=== PATIENT | female | born 1995 | race African-American/Black ===

== ENCOUNTER 2019-08-28 23:19 | Observation (INO) ==
[2019-08-29] MEDS ORDERED: SODIUM CHLORIDE 0.9% 500 ML IV STA (01:08)
[2019-08-29 01:51] LABS: INR 1.1
[2019-08-29] MEDS ORDERED: ONDANSETRON 4 MG/2 ML VIAL ONE ×2 (01:51→10:56)
[2019-08-29] MEDS ORDERED: HYDROmorphone 2 MG/1 ML VIAL ONE (01:52)
[2019-08-29] MEDS ORDERED: HYDROmorphone 2 MG/1 ML VIAL IV ONE (01:56)
[2019-08-29] MEDS ORDERED: ONDANSETRON 4 MG/2 ML VIAL IV STA (01:56)
[2019-08-29 01:57] LABS: Basophils % 0.3 % (0.0-0.8); Eosinophils # 0.1 10*3/uL (0.0-0.87); Eosinophils % 0.8 % (0.00-10.9); Hemoglobin 11.2 GM/DL (12.0-16.0); Immature Granulocytes % 0.3 %; Immature Granulocytes Absolute 0.04 #; Lymphocytes # 2.3 10*3/uL (1.4-4.0); Lymphocytes % 19.4 % (21.3-54.2); Mean Corpuscular HGB Conc 32.9 GM/DL (32-36); Mean Corpuscular Volume 89.2 FL (87-102); Monocytes % 4.5 % (1.7-12.7); Neutrophils % 74.7 % (38.7-73.9); Platelet Count 301 T/CUMM (130-400); Red Blood Count 3.81 MC/CUMM (3.8-5.5); Red Cell Distribution Width 12.3 % (9.3-17.3); White Blood Count 11.9 T/CUMM (4-12)
[2019-08-29 01:58] LABS: Apearance,Urine CLOUDY (Clear); Bilirubin,Urine Negative (Negative); Blood, Urine Large mg/dL (Negative); Glucose,Urine (UA) Negative (Negative); Ketones,Urine 20 mg/dL (Negative); Mucus,Urine Occasional /LPF (Occasional); Nitrite,Urine Negative (Negative); Protein,Urine 30 MG/DL; Squamous Epithelial Cell,Urine Occasional /HPF (0-10); Urine Color Amber (Yellow); Urine Specific Gravity 1.033 (1.001-1.035); WBC,Urine 1 /HPF (0-6)
[2019-08-29 02:19] LABS: Albumin 3.9 G/DL (3.4-5.0); Bilirubin,Total 1.4 MG/DL (0.2-1.0); Osmolality,Calculated 271.8 MOS/KG (273-304); Total Protein 7.8 G/DL (6.4-8.3)
[2019-08-29] MEDS ORDERED: ONDANSETRON 4 MG/2 ML VIAL IV PRN (03:25)
[2019-08-29] MEDS ORDERED: MORPHINE 4 MG/1 ML VIAL IV PRN (03:25)
[2019-08-29] MEDS ORDERED: ACETAMINOPHEN 325 MG TABLET PO PRN (03:25)
[2019-08-29] MEDS ORDERED: IBUPROFEN 800 MG TABLET PO PRN (03:25)
[2019-08-29] MEDS ORDERED: MAGNESIUM HYDROXIDE SUSP 30 ML UDCUP PO PRN (03:25)
[2019-08-29] MEDS ORDERED: SODIUM CHLORIDE 0.9% 1,000 ML IV SCH (03:25)
[2019-08-29] MEDS ORDERED: BISACODYL 10 MG SUPP RECTAL PRN (03:25)
[2019-08-29] MEDS ORDERED: LACTATED RINGERS 1,000 ML IV SCH (03:30)
[2019-08-29] MEDS ORDERED: ONDANSETRON 4 MG/2 ML VIAL IV ONE (04:25)
[2019-08-29] MEDS ORDERED: PROMETHAZINE 25 MG/1 ML VIAL IM ONE (04:28)
[2019-08-29 06:00] LABS: Basophils # 0.1 10*3/uL (0.0-0.2); Basophils % 0.4 % (0.0-0.8); Eosinophils # 0.1 10*3/uL (0.0-0.87); Eosinophils % 0.9 % (0.00-10.9); Hematocrit 34.7 VOL% (35.7-47.0); Immature Granulocytes % 0.7 %; Immature Granulocytes Absolute 0.08 #; Lymphocytes # 2.2 10*3/uL (1.4-4.0); Lymphocytes % 18.8 % (21.3-54.2); Mean Corpuscular HGB Conc 31.7 GM/DL (32-36); Mean Corpuscular Volume 91.3 FL (87-102); Mean Platelet Volume 10.3 FL (9.6-12.0); Monocytes % 5.4 % (1.7-12.7); Neutrophils % 73.8 % (38.7-73.9); Platelet Count 280 T/CUMM (130-400); Red Cell Distribution Width 12.3 % (9.3-17.3); White Blood Count 11.6 T/CUMM (4-12)
[2019-08-29 06:20] LABS: Albumin 3.6 G/DL (3.4-5.0); Bilirubin,Total 2.2 MG/DL (0.2-1.0); Calcium 8.9 MG/DL (8.5-10.1); Osmolality,Calculated 272.7 MOS/KG (273-304); Total Protein 7.2 G/DL (6.4-8.3)
[2019-08-29] MEDS ORDERED: FAMOTIDINE 20 MG TABLET PO ONE (08:15)
[2019-08-29] MEDS ORDERED: DIAZEPAM 5 MG TABLET PO ONE (08:15)
[2019-08-29] MEDS ORDERED: DOCUSATE SODIUM 100 MG CAPSULE PO SCH (09:00)
[2019-08-29] MEDS ORDERED: TISSUE ADHESIVE 1 EACH APPLICATOR TOP ONE (09:38)
[2019-08-29] MEDS ORDERED: LIDOCAINE 1%/EPI INJ 20 ML VIAL ONE (09:38)
[2019-08-29] MEDS ORDERED: ceFAZolin 1,000 MG VIAL ONE (10:14)
[2019-08-29] MEDS ORDERED: LIDOCAINE 2% 5 ML VIAL ONE (10:55)
[2019-08-29] MEDS ORDERED: propofoL 200 MG/20 ML VIAL IV ONE (10:55)
[2019-08-29] MEDS ORDERED: SEVOFLURANE 1 UNIT/15 MINUTE INH ONE (10:56)
[2019-08-29] MEDS ORDERED: MIDAZOLAM 2 MG/2 ML VIAL ONE (10:56)
[2019-08-29] MEDS ORDERED: fentaNYL 100 MCG/2 ML VIAL ONE (10:56)
[2019-08-29] MEDS ORDERED: DEXAMETHASONE 4 MG/1 ML VIAL ONE (10:56)
[2019-08-29] MEDS ORDERED: LACTATED RINGERS 1,000 ML IV ONE (10:56)
[2019-08-29] MEDS ORDERED: KETOROLAC 30 MG/1 ML VIAL ONE (10:56)
[2019-08-29] MEDS ORDERED: NEOSTIGMINE 10 MG/10 ML VIAL ONE (10:56)
[2019-08-29] MEDS ORDERED: GLYCOPYRROLATE 0.4 MG/2 ML VIAL ONE (10:56)
[2019-08-29] MEDS ORDERED: ROCURONIUM 100 MG/10 ML VIAL IV ONE (10:57)
[2019-08-29 15:34] VITALS: BP 120/71
== END 2019-08-29 16:40 | disposition home or self-care (01) ==
LOC: N.ED 23:19 → INTOOBSV 08-29 01:53 → N.EDINP 08-29 01:53 → N.OB 08-29 03:03
PROVIDERS: ADMIT Obstetrics & Gynecology; ATTEND Obstetrics & Gynecology